=== PATIENT | male | born 1990 | race American Indian/Alaskan Native ===

== ENCOUNTER 2020-12-29 08:00 | Outpatient (CLI) | payer OTHER | END 2020-12-29 08:30 | disposition home or self-care (01) | LOC: PPH VACUNA 08:00 | PROVIDERS: ATTEND Emergency Medicine Pediatric Emergency Medicine | DX: Z23 Encounter for immunization (principal) ==

== ENCOUNTER 2022-02-17 08:23 | Outpatient (CLI) | payer OTHER | END 2022-02-17 08:31 | disposition home or self-care (01) | LOC: EKG 08:23 → LAB 08:23 → EKG 08:31 | PROVIDERS: ATTEND Obstetrics & Gynecology Gynecology | DX: I10 Essential (primary) hypertension (principal); I20.9 Angina pectoris, unspecified; R07.89 Other chest pain; E03.9 Hypothyroidism, unspecified; K22.10 Ulcer of esophagus without bleeding; N39.0 Urinary tract infection, site not specified; D29.1 Benign neoplasm of prostate ==

== ENCOUNTER 2023-04-07 08:30 | Outpatient (CLI) | payer OTHER | END 2023-04-07 08:36 | disposition home or self-care (01) | LOC: RAD 08:30 | DX: M99.01 Segmental and somatic dysfunction of cervical region (principal); M99.02 Segmental and somatic dysfunction of thoracic region; M99.03 Segmental and somatic dysfunction of lumbar region; M99.04 Segmental and somatic dysfunction of sacral region; M99.05 Segmental and somatic dysfunction of pelvic region ==

== ENCOUNTER 2023-06-15 12:35 | Outpatient (CLI) | payer OTHER | END 2023-06-15 15:18 | disposition home or self-care (01) | LOC: MRI 12:35 | DX: M43.24 Fusion of spine, thoracic region (principal); G60.0 Hereditary motor and sensory neuropathy | CPT/HCPCS: 72146; 72148 ==

== ENCOUNTER → 2024-12-12 | Outpatient (CLI) | payer OTHER | END | disposition home or self-care (01) | LOC: MRI 12:07 | PROVIDERS: ATTEND Obstetrics & Gynecology Gynecology | DX: M54.14 Radiculopathy, thoracic region (principal); M46.42 Discitis, unspecified, cervical region; M51.9 Unspecified thoracic, thoracolumbar and lumbosacral intervertebral disc disorder | CPT/HCPCS: 72141; 72146; 72148 ==